=== PATIENT | female | born 1940 | race Caucasian/White ===

== ENCOUNTER 2022-05-03 11:08 | Emergency (ER) | payer MEDICARE ==
[2022-05-03] MEDS ORDERED: Levalbuterol HCl 1.25 MG/0.5 ML Neb NEB ONE (11:22)
[2022-05-03] MEDS ORDERED: methylPREDNISolone Sodium Succinate 40 MG/1 ML SDV IVPUSH ONE (12:17)
[2022-05-03] MEDS ORDERED: Potassium Chloride 10 MEQ Tab.ER PO ONE (12:26)
[2022-05-03] MEDS ORDERED: methylPREDNISolone Sodium Succinate 40 MG/1 ML SDV ONE (12:31)
== END 2022-05-03 13:05 | disposition home or self-care (01) ==
LOC: LB.ED 11:08
DX: R06.02 Shortness of breath (principal); R05.9 Cough, unspecified; Z88.0 Allergy status to penicillin; Z91.040 Latex allergy status; Z91.048 Other nonmedicinal substance allergy status; Z79.899 Other long term (current) drug therapy; Z20.822 Contact with and (suspected) exposure to COVID-19
CPT/HCPCS: 36415; 71045; 80053; 83735; 85025; 96374; 99282; 99283-25; A9270-GY; J2920; J7612; U0002

== ENCOUNTER 2022-05-23 12:48 | Emergency (ER) | payer MEDICARE ==
[2022-05-23] MEDS ORDERED: Albuterol/Ipratropium 3.0-0.5 MG/3 ML Neb Soln NEB STA (13:18)
[2022-05-23] MEDS ORDERED: Benzonatate 100 MG Cap ONE (14:00)
[2022-05-23] MEDS ORDERED: Doxycycline 100 MG Cap ONE (14:00)
== END 2022-05-23 14:09 | disposition home or self-care (01) ==
LOC: LB.ED 12:48
DX: R06.02 Shortness of breath (principal); R05.9 Cough, unspecified; Z88.0 Allergy status to penicillin; Z91.040 Latex allergy status; Z91.048 Other nonmedicinal substance allergy status; Z79.899 Other long term (current) drug therapy; Z20.822 Contact with and (suspected) exposure to COVID-19
CPT/HCPCS: 99285; A9270-GY; U0002

== ENCOUNTER 2022-05-25 13:52 | Observation (INO) | payer MEDICARE ==
[2022-05-25] MEDS ORDERED: Sodium Chloride 0.9% 10 ML Syringe FLUSH PRN (14:12)
[2022-05-25] MEDS ORDERED: Sodium Chloride 0.9% 1,000 ML IV SCH (14:45)
[2022-05-25 15:03] LABS: ESTIMATED GFR 78 mL/min (>60)
[2022-05-25] MEDS ORDERED: Ondansetron 4 MG/2 ML SDV IVPUSH ONE (15:54)
[2022-05-25] MEDS ORDERED: Prochlorperazine 10 MG/2 ML SDV IVPUSH ONE (16:24)
[2022-05-25] MEDS ORDERED: Prochlorperazine 10 MG/2 ML SDV ONE ×2 (16:26→16:37)
[2022-05-25] MEDS ORDERED: Ondansetron 4 MG Tab.DIS PO PRN (17:38)
[2022-05-25] MEDS ORDERED: Lactated Ringers 1,000 ML IV SCH (17:45)
[2022-05-25] MEDS ORDERED: Omeprazole 20 MG Cap.CR PO SCH (20:00)
[2022-05-25] MEDS ORDERED: Doxycycline 100 MG Cap PO ONE (22:08)
[2022-05-25] MEDS ORDERED: Pravastatin 40 MG Tab PO ONE (22:09)
[2022-05-25] MEDS ORDERED: Pravastatin 20 MG Tab PO ONE (22:36)
[2022-05-26] MEDS ORDERED: Doxycycline 100 MG Cap ONE (08:37)
[2022-05-26] MEDS ORDERED: Doxycycline 100 MG Cap PO ONE (08:58)
[2022-05-26] MEDS ORDERED: GI Cocktail Oral Solution 30 ML PO ONE (10:28)
[2022-05-26] MEDS ORDERED: Prochlorperazine 10 MG/2 ML SDV IVPUSH ONE (10:28)
== END 2022-05-26 14:58 | disposition home or self-care (01) ==
LOC: LB.ED 13:52 → LB.MS 16:58
PROVIDERS: ADMIT Surgery; ATTEND Surgery
DX: J18.1 Lobar pneumonia, unspecified organism (principal); R11.2 Nausea with vomiting, unspecified; E78.00 Pure hypercholesterolemia, unspecified; I10 Essential (primary) hypertension; Z88.0 Allergy status to penicillin; Z91.040 Latex allergy status; Z91.048 Other nonmedicinal substance allergy status; Z79.899 Other long term (current) drug therapy; Z98.890 Other specified postprocedural states
CPT/HCPCS: 36415; 71045; 80048; 83880; 85027; 86140; 96361; 96374; 96375; 96376; 99285-25; A9270-GY; G0378; J0780; J2405; J7030; J7120; Q0162